=== PATIENT | female | born 1980 | race Caucasian/White ===

== ENCOUNTER → 2024-01-09 | Outpatient (CLI) | payer OTHER, SELFPAY ==
--- NOTE | 2024-01-09 13:48 | VDLE_ITS ---
Reason For Study: Bilateral leg pain RIGHT LEFT CFV is compressible, spontaneous, phasic, CFV is compressible, spontaneous, phasic, competent and demonstrates normal competent, and demonstrates normal augmentation. augmentation. FV is compressible, spontaneous, phasic, FV is compressible, spontaneous, phasic, competent and demonstrates normal competent and demonstrates normal augmentation. augmentation. POP V is compressible, spontaneous, phasic, POP V is compressible, spontaneous, phasic, competent and demonstrates normal competent and demonstrates normal augmentation. augmentation. T/P Trunk is compressible. T/P Trunk is compressible. PTV is compressible. PTV is compressible. RT PerV is compressible. LT PerV is compressible. GSV and SSV are occluded s/p EVLA. SFJ is INCOMPETENT and measures 1.20 x 1.43 ASV proximal calf is INCOMPETENT for greater cm. than 0.5 seconds and measures 0.24 x 0.22 cm. GSV proximal thigh measures 0.82 x 0.87 cm. Procedure GSV at knee measures 0.67 x 0.67 cm. This is a venous duplex using B-mode, color GSV INCOMPETENT throughout for greater than flow and spectral Doppler. 0.5 seconds. Exam performed in department. ASV proximal calf is INCOMPETENT for greater Patient was scanned in reverse Trendelenburg than 0.5 seconds and measures 0.44 x 0.45 cm. position during reflux assessment. ASV prox calf connects GSV to SSV. Cluster of varicose veins is noted coming off of the GSV prox calf. INCOMPETENT bowling ball patcher noted 8 cm above medial malleolus. SSV proximal calf is competent and measures 0.30 x 0.28 cm. VL/Venous Duplex US - Jack Extrem Interpretation Summary Deep veins of the bilateral lower extremities are patent and compressible segme ntally. There is no evidence of bilateral lower extremity deep vein thrombosis. The bilateral great saphenous veins appear patent and compressible segmentally. Right great saphenous vein occluded consistent with prior ablation. Positive for reflux in the right accessory saphenous vein in the calf. Positive for reflux in the left saphenofemoral junction, great saphenous vein t hroughout, accessory saphenous vein, and a medial calf bowling ball patcher vein Ordering Physician: Carolee Brennan Referring Physician: Tala Lozano Performed By: Nae Park RVT
--- OUTSIDE RECORDS SUMMARY | 2024-01-09 22:21 | XMS RPT_ITS | CCD ---
Author Name Unknown Address [facility] [place] [id number] Organization [facility] Care Team Providers Care Ob Nurse Name Role Phone DILCIA SRINIVASAN Primary Care Unavailable SRINIVASAN, DILCIA [place] Consulting Unavailable SRINIVASAN, DILCIA J Attending Unavailable SRINIVASAN, DILCIA J Admitting Unavailable PROVIDER, UNKNOWN Consulting Unavailable SRINIVASAN, DILCIA J Primary Care Unavailable SRINIVASAN, DILCIA J Consulting Unavailable SRINIVASAN, DILCIA J Attending Unavailable SRINIVASAN, DLICIA J Admitting Unavailable PROVIDER, UNKNOWN Consulting Unavailable Results Test Name Value Interpretation Reference Range Facil ity Encounters Encounter Date Encounter Type Care Provider Facility Start: 09-27-2023 End: 09-27-2023 ambulatory [facility] [place] SRINIVASAN [facility] Start: 03-11-2023 End: 03-11-2023 ambulatory [facility] Payers Date Payer Category Payer Unknown [id number] 1980 Unknown [id number] Unknown [id number] Unknown [id number] Summary Purpose Family History No Family History Records FoundNo Family History Records Found Advance Directives No Advanced Directives Records FoundNo Advanced Directives Records Found Additional Source Comments INFORMATION SOURCE (unrecogn ized section and content) DATE CREATED AUTHOR AUTHOR'S KORTNEY ATION 10/12/2023 [facility] FOR RECORDS PERTAINING TO PATIENTS WHO ARE OR HAVE BEEN ENROLLED IN A CHEMICAL DEPENDENCY/SUBSTANCEABUSE PROGRAM, SOME INFORMATION MAY BE OMITTED. This clinical summary was aggregated from multiple sources. Caution should be exercised in using it in the provision of clinical care. This summary normalizes information from multiple sources, and as a consequence, information in this document may materially change the coding, format and clinical context of patient data. In addition, data may be omitted in some cases. CLINICAL DECISIONS SHOULD BE BASED ON THE PRIMARY CLINICAL RECORDS. [facility] [employer] [facility]. provides no warranty or guarantee of the accuracy or completeness of information in this document.
== END | disposition home or self-care (01) ==
PROVIDERS: PCP Physician Assistant; Referring Provider Physician Assistant; Visit Provider Physician Assistant
DX: I87.2 Venous insufficiency (chronic) (peripheral) (principal); I83.90 Asymptomatic varicose veins of unspecified lower extremity
CPT/HCPCS: 93970

== ENCOUNTER 2024-02-23 08:58 | Day surgery (SDC) | payer OTHER, SELFPAY ==
[2024-02-22 14:37] VITALS: BMI 45.8
[2024-02-23 09:13] LABS: Hematocrit 43.2 % (37-47); Hemoglobin 14.3 g/dL (12.0-15.0); Mean Corp Hgb Conc 33.1 g/dL (32-36); Mean Corpuscular Hgb 27.9 pg (27.0-32.0); Mean Corpuscular Volume 84.4 fL (81-99); Mean Platelet Vol. 9.6 fl (6.2-12.0); Platelet Count 293 K/mm3 (150-450); RBC Distribution Width SD 40.2 fl (35.1-43.9); Red Blood Count 5.12 M/mm3 (4.2-5.4)
[2024-02-23 09:33] LABS: Anion Gap 0 (5-15); BUN 12 mg/dL (7-18); BUN/Creat Ratio 14.2 RATIO (10-20); Calcium,Total 8.9 mg/dL (8.5-10.1); Chloride 108 mmol/L (98-107); Creatinine, Serum 0.84 mg/dL (0.55-1.02); EST Glomerular Filtration Rate 78 mL/min (>60); Est Glom Filt Rate - Afr Amer 94 mL/min (>60); Glucose 108 mg/dL (74-106); Potassium 4.7 mmol/L (3.5-5.1); Sodium Level 136 mmol/L (136-145)
--- NOTE | 2024-02-23 11:49 | HP.PCM_ITS ---
HPI - General HPI Narrative NIKI GONZALES, is a 44 F who presents left lower extremity painful varicose veins refractory to compression. Duplex reveals reflux throughout GSV. [facility] Medical History (Updated 02/23/24 @ 11:[address] Bill Caldera MD) Obesity Venous insufficiency Home Medications sertraline 50 mg tablet 50 mg PO DAILY 12/28/23 [History Last Taken Unknown] Allergy/AdvReac Type Severity Reaction Status Date / Time No Known Allergies Allergy Verified 12/28/23 13:57 Social History (Updated 12/28/23 @ 13:50 by Katie Carmona) Smoking Status: Former smoker ROS Constitutional Constitutional: Denies chills, fever(s), frequent falls, lethargy or weakness Eyes Eyes: Denies blind spots, change in vision or loss of vision ENT HEENT: Denies bleeding gums, hoarseness or sore throat Cardiovascular Cardiovascular: Denies abdominal pain, bluish discoloration of hand/feet, chest pain with activity, claudication, cold extremities, cyanosis, dyspnea on exertion, erythema on extremities, irregular heart rhythm, leg edema, leg ulcers, numbness in extremities or weakness in extremities Respiratory/Chest Respiratory/Chest: Denies cough, excessive phlegm production, shortness of breath at rest, shortness of breath with exertion or wheezing Gastrointestinal Gastrointestinal: Denies anorexia, change in stool character, constipation, diarrhea, melena or rectal bleeding Genitourinary Genitourinary: Denies dysuria or hematuria Musculoskeletal Musculoskeletal: Denies abnormal gait Integumentary Integumentary: Reports other Details: ; Denies erythema, non-healing lesions or wounds Neurologic Neurologic: Denies abnormal speech, focal weakness, headache(s), loss of vision, numbness, paresthesias or sensory deficit Hematologic/Lymphatic Hematologic/Lymphatic: Denies easy bleeding, easy bruising or lymphadenopathy Vital Signs Vital Signs Vital Signs: Weight Weight: 284 lb Body Mass Index (BMI) 45.8 Physical Exam Const alert, oriented x3, no apparent distress and healthy appearing General Appearance: cooperative; Negative for combative or lethargic Orientation / Consciousness: awake Exam Limitations: no limitations HEENT Head and Scalp: normocephalic and atraumatic Eyes EOMs intact bilaterally General Eye: normal appearance of both eyes Neck full ROM, no lymphadenopathy, thyroid normal and No no carotid bruits General: trachea midline; Negative for lymphadenopathy or tenderness Thyroid: thyroid normal Lymph Lymphatic: Negative for no lymphadenopathy noted Resp normal respiratory effort and no use of accessory muscles Effort and Inspection: Negative for labored, stridor or audible wheezes Cardio regular rate and regular rhythm Back/Spine Cervical Spine: cervical ROM normal Extremity full ROM, normal capillary refill and no clubbing, cyanosis or edema Skin no rashes or lesions noted and no wounds Neuro oriented x3, CN's II-XII intact bilaterally, no focal motor deficits and no sensory deficits noted Psych thought process normal, cooperative, affect normal, speech normal and activity/motor behavior normal Results Lab / Micro Data 02/23/24 09:03 02/23/24 09:03 Labs: Laboratory Results - last 24 hr 02/23/24 09:03: WBC 8.0, RBC 5.12, Hgb 14.3, Hct 43.2, MCV 84.4, MCH 27.9, MCHC 33.1, RDW Std Deviation 40.2, RDW Coeff of Lynda 13.0, Plt Count 293, MPV 9.6, Sodium 136, Potassium 4.7, Chloride 108 H, Carbon Dioxide 28.0, Anion Gap 0 L, BUN 12, Creatinine 0.84, Estim Creat Clear Calc 116.30, Est GFR (MDRD) Af Amer 94, Est GFR (MDRD) Non-Af 78, BUN/Creatinine Ratio 14.2, Glucose 108 H, Calcium 8.9 Assessment & Plan Assessment/Plan (1) Varicose veins of left lower extremity with pain: PLAN: -chemical ablation
--- NOTE | 2024-02-23 14:03 | PCM.OPRPT ---
Report of Operation Date of Procedure: 02/23/24 Pre-Operative Diagnosis: painful varicose veins, left lower extremity Post-Operative Diagnosis: same Surgery/Procedure Performed:: left GSV chemical ablation Surgeon: Bill Caldera Type of Anesthesia: Local and Sedation,Conscious Estimated Blood Loss (mL): 3 Description of Procedure: HPI: Patient is a 44-year-old female with a painful left lower extremity varicose veins refractory to compression therapy. She had venous reflux that is which revealed great saphenous vein reflux throughout. She presents now for chemical ablation. Description of procedure: On obtaining informed consent and verification correct patient procedure site patient taken to the Dynamic Balancer Set Up Worker where she was positioned prepped and draped in you sterile fashion. Time was performed conscious sedation administered with Versed and fentanyl. The great saphenous vein was then interrogated Doppler and found to be in continuity throughout. Skin overlying the great saphenous vein just above the ankle was anesthetized 1% lidocaine the vessel accessed under ultrasound guidance with a micropuncture needle wire. This then exchanged out for the 7 [place] sheath through which balloon delivery guide was advanced to the saphenofemoral junction. The dilator was then drawn and the glue delivery catheter then advanced in position per habitat management coordinator instructions and inferior to the saphenofemoral junction. Glue was then deposited along the entire the length the treatment segment. After completing glue deposition the guide and catheter then withdrawn followed by removal of the sheath and manual pressure held until hemostasis noted. Dry sterile dressing and compression wrap were then applied and the patient was then taken the recovery room for discharged home.
== END 2024-02-23 14:15 | disposition home or self-care (01) ==
LOC: CLSP 09:02
PROVIDERS: PCP Physician Assistant; Referring Provider Surgery Trauma Surgery; Visit Provider Surgery Trauma Surgery
DX: I83.812 Varicose veins of left lower extremity with pain (principal); Z87.891 Personal history of nicotine dependence
CPT/HCPCS: 36415; 36482; 80048; 85027; 99152; 99153; C1894; J7040

== ENCOUNTER → 2024-03-08 | Outpatient (CLI) | payer OTHER, SELFPAY ==
--- NOTE | 2024-03-08 14:03 | VDLE_ITS ---
Reason For Study: S/P LLE Chemical Ablasion RIGHT LEFT CFV is compressible, spontaneous, phasic, CFV is compressible, spontaneous, phasic, competent and demonstrates normal competent, and demonstrates normal augmentation. augmentation. Procedure FV is compressible, spontaneous, phasic, This is a venous duplex using B-mode, color competent and demonstrates normal flow and spectral Doppler. augmentation. Exam performed in department. POP V is compressible, spontaneous, phasic, The exam was diagnostic. competent and demonstrates normal augmentation. T/P Trunk is compressible. PTV is compressible. LT PerV is compressible. GSV, ASV and varicosities are dilated and noncompressible with intraluminal echoes. Finding is consistent with recent chemical ablation procedure. VL/Venous Duplex US, Unilateral Interpretation Summary Deep veins of the left lower extremity are patent and compressible segmentally. There is no evidence of left lower extremity deep vein thrombosis. Left great saphenous and accessory saphenous occlusion consistent with recent c hemical ablation. Ordering Physician: Carolee Brennan Referring Physician: Tala Lozano Performed By: Gopi Ignacio RVT and Student
== END | disposition home or self-care (01) ==
LOC: CVS 14:03
PROVIDERS: PCP Physician Assistant; Referring Provider Physician Assistant; Visit Provider Physician Assistant
DX: I87.2 Venous insufficiency (chronic) (peripheral) (principal); I83.90 Asymptomatic varicose veins of unspecified lower extremity; M79.605 Pain in left leg
CPT/HCPCS: 93971